=== PATIENT | male | born 1985 | race Caucasian/White ===

== ENCOUNTER 2018-02-08 20:55 | Emergency (ER) | payer OTHER, SELFPAY ==
[2018-02-08 21:04] VITALS: BP 173/105; PULSE 112; RESP 17; TEMP 36.4; O2SAT 99
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
[2018-02-08 22:43] LABS: Add Manual Diff / Slide Review NO; Basophils Percent Auto 0.2 % (0-2); Eosinophils Percent Auto 0.1 % (2-4); Hematocrit 48.3 % (41-53); Hemoglobin 17.1 g/dL (13.5-17.5); Lymphocytes Percent Auto 11.4 % (25-40); Mean Corpuscular HGB Conc 35.5 % (30-36); Mean Corpuscular Hemoglobin 31.3 PG (26-34); Mean Corpuscular Volume 88.2 fL (80-100); Monocytes Percent Auto 7.7 % (3-14); Neutrophils Absolute Auto 11000 /uL (3000-5900); Neutrophils Percent Auto 80.6 % (50-75); Platelet Count 215 X10^3/uL (150-400); Red Blood Cell Count 5.47 X10^6/uL (4.5-5.9); Red Cell Distribution Width 12.7 % (11.6-14.8); White Blood Cell Count 13.6 X10^3/uL (4.5-11.0)
[2018-02-08 22:46] LABS: BUN Creatinine Ratio 13.8 (6-22); Blood Urea Nitrogen 11 mg/dL (9-20); Calcium 9.5 mg/dL (8.4-10.2); Carbon Dioxide 23 mmol/L (22-32); Chloride 100 mmol/L (98-107); Estimated Glomerular Filt Rate > 60.0 mL/min (>60); Ethanol (ETOH) 84 mg/dL; Glucose 98 mg/dL (70-100); HEMOLYSIS < 15 (0-50); Potassium 3.6 mmol/L (3.4-5.1); Sodium 141 mmol/L (137-145)
[2018-02-08] MEDS: TET,DIPH,PERTUSS(ACELL),VAC/PF 0.5 ML SYRINGE IM (23:41)
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
[2018-02-09 00:23] VITALS: BP 167/96; PULSE 95; RESP 16; O2SAT 97
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
[2018-02-09 03:52] VITALS: BP 152/89; PULSE 91; RESP 18; O2SAT 98
[2018-02-09] MEDS: IBUPROFEN 400 MG TABLET PO (03:58)
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
--- NOTE | 2018-02-11 12:27 | PC.NURSE ---
Mother called (here w/ patient on Sunday) concerned that patient was not going to be seen until Sunday at [place]. Pt is doing well w/ no increase in pain / neuro symptoms. Reviewed w/ Dr. Carrasquillo who agreed that Sunday was wnl. Mother encouraged to bring back pt if any increase in symptoms / concerns.
== END 2018-02-09 04:40 | disposition home or self-care (01) ==
PROVIDERS: Emergency Provider Emergency Medicine
DX: S02.109A Fracture of base of skull, unspecified side, initial encounter for closed fracture (principal); V18.0XXA Pedal cycle driver injured in noncollision transport accident in nontraffic accident, initial encounter
CPT/HCPCS: 36591; 70450; 70496; 70498; 71046; 72040; 72072; 72100; 72125; 80048; 80320; 85025; 90471; 99283; 99285; 90715